=== PATIENT | male | born 1980 | race Hispanic/Latino ===

== ENCOUNTER 2021-04-06 03:58 | Emergency (ER) | payer SELFPAY ==
[~2021-04-06] VITALS: Ht 185.4 cm; Wt 127.0 kg
[2021-04-06] MEDS ORDERED: AMOXICILLIN500 MG PO (04:37)
== END 2021-04-06 04:51 | disposition home or self-care (01) ==
LOC: ED 03:58
DX: J02.0 Streptococcal pharyngitis (principal); R59.0 Localized enlarged lymph nodes; Z20.822 Contact with and (suspected) exposure to COVID-19
CPT/HCPCS: 99283; U0003